=== PATIENT | male | born 1960 | race Caucasian/White ===

== ENCOUNTER 2016-08-02 02:08 | Inpatient (IN) | payer OTHER ==
[~2016-08-02] VITALS: Ht 177.8 cm; Wt 99.8 kg
--- NOTE | ~2016-08-02 | PR ---
[place], [place] PROGRESS NOTE NAME: TAVIA WERNER JR [facility] #: [id number] UNIT #: [id number] ROOM: 528 DOCTOR: VARGHESE BOND MD,ARGELIA BIRTHDATE: [birth year] DOS: 08/07/2016 PULMONARY FOLLOWUP SUBJECTIVE: He has been noted comfortable, was noted with some rash of the skin. The patient has been still noted with some chest congestion and cough, but not severe. OBJECTIVE: VITAL SIGNS: Normal temperature, respiratory rate 20, heart rate 70, blood pressure 120/72. The pulse oxygen saturation for the patient was noted on room air 93% saturation. HEENT: Examination shows no acute change. NECK: Supple. CARDIOVASCULAR: S1, S2 is audible. LUNGS: Noted without any wheeze or crackles. ABDOMEN: Soft, nontender. IMPRESSION: Resolving acute exacerbation of bronchial asthma with acute bronchitis. Skin rash of the patient which were noted mild, unclear etiology, most likely drug related. PLAN OF TREATMENT: No change in plan of management. Continue the patient on current therapy as in progress without any changes with all other care. Usual medical management. Supportive care. ARGELIA KWONG MD CM:PNTRANS [id number] ARGELIA BOND MD 08/07/16 1510 interface
--- NOTE | ~2016-08-02 | CON ---
[place], [place] REPORT OF CONSULTATION NAME: TAVIA WERNER JR [facility] #: [id number] UNIT #: [id number] ROOM: 528 DOCTOR: ARGELIA ALCOCER MD BIRTHDATE: [birth year] DOS: 08/04/2016 PULMONARY CONSULTATION EVALUATION AND MANAGEMENT REASON FOR CONSULTATION: Assess the patient for persistent cough, wheezing and shortness of breath. HISTORY OF PRESENT ILLNESS: This is a 55-year-old white male who has been known to me from a previous admission of 10/17/2015. The patient has been treated at that time in this hospital for the management of acute exacerbation of bronchial asthma with acute bronchitis. The patient did very well and started with having increased respiratory symptoms, which has been started for this patient for the last few days. The symptoms have been noted shortness of breath, which was noted progressively worsened. The symptoms started after the patient started with having what is called chest cold. The cough has been noted for the patient, which progressively got worse and described to be nonproductive, mostly dry. Denies symptoms of hemoptysis. The patient has had some wheezing at times. He denies symptoms of chest pain. Chest tightness rather was described. REVIEW OF SYSTEMS: CONSTITUTIONAL: The patient was noted with some symptoms of fatigue and tiredness, but there were no symptoms of fever or chills. EYES: Denies any burning, redness, or tenderness. EARS, NOSE, THROAT: No sore throat, hoarseness, or otalgia. Postnasal drainage. CARDIOVASCULAR: Denies anginal pain, edema or pain of the lower extremities. GASTROINTESTINAL: Denies nausea, vomiting, diarrhea, abdominal pain, hematemesis, melena, or hematochezia. GENITOURINARY: Denies dysuria, suprapubic pain, hematuria. SKIN: No lesions or rashes. CENTRAL NERVOUS SYSTEM: Denies dizziness, headache or diplopia. Remaining systems for the patient were reviewed, they were noted all negative. The patient's past medical history is noted for medically managed bronchitis and also described as pulmonary embolism with a CT scan of the chest that was done on 06/25/2016. The patient has been adequately treated at that time. PAST MEDICAL HISTORY: Noted with, 1. Uncomplicated moderate persistent bronchial asthma. 2. Asymptomatic cholelithiasis. 3. Type 2 diabetes mellitus. 4. Essential hypertension. 5. Nonalcoholic fatty liver. 6. Chronic lower back pain. 7. Osteoarthritis and osteoporosis. 8. Seasonal allergic rhinitis. 9. Right lower lobe pulmonary embolism, which was diagnosed for the patient in 05/2016. [place], [place] REPORT OF CONSULTATION NAME: TAVIA WERNER JR UNIT #: [id number] ROOM: 528 DOCTOR: ARGELIA ALCOCER MD BIRTHDATE: [birth year] PAST SURGICAL HISTORY: 1. Low back surgery. 2. Appendectomy. 3. Carpal tunnel release. SOCIAL HISTORY: The patient is , has 2 children. Denies any alcohol or illicit drug use. Tobacco use was noted in the past, unknown duration of the tobacco use. At this time, the patient does not smoke any cigarettes. FAMILY HISTORY: Not known. MEDICATIONS: Current administered medications for the patient were noted as the use of Flexeril, sliding scale insulin coverage, Mucinex, IV Solu-Medrol, Xarelto, Xopenex via nebulizer, doxycycline, Rocephin, Xanax, and other p.r.n. medications. ALLERGIES: Drug allergy has been described as allergy to, 1. CAFFEINE. 2. ALBUTEROL SULFATE. 3. SUDAFED. 4. ADVAIR. Drug allergies were described as tightness in the chest. PHYSICAL EXAMINATION: GENERAL: This is a 55-year-old white male without any distress. Height of 5 feet 10 inches, weight of 220 pounds, BMI 31.3. VITAL SIGNS: Shows normal temperature, respiratory rate of the patient recorded as 20, heart rate of 85, blood pressure 130/70. Intake for the patient was recorded as 3000 mL, output was 4050 mL. Pulse oxygen saturation on room air was 93% saturation. HEENT: Mild obesity. Head was atraumatic. Eyes nonicterus. Oral mucosa moist, no abnormal lesions. CARDIOVASCULAR: S1, S2 is audible. LUNGS: Noted moderately reduced breath sounds in the lungs bilaterally without any wheeze or crackles. Breaths are noted essentially generalized diminished bilaterally. ABDOMEN: Soft, nontender. LABORATORY DATA: CBC on 07/02/2016 on admission was noted as normal. Lactic acid on 07/02/2016 was normal. PT/PTT on 07/02/2016 was normal. CMP of the patient 07/02/2016, glucose 136, BUN and creatinine was normal. Repeat troponins and CK-MB for this patient, which were done were noted as normal. The CBC that was done yesterday, still noted as normal. PT/PTT repeated again yesterday was normal. CMP of the patient on 08/03/2016, glucose 265, BUN and creatinine were normal. Chest x-ray on admission for this patient was noted without any acute pulmonary infiltration or other abnormalities. The patient had a CTA of the chest repeated on 08/02/2016, shows resolution of previously noted right lobe pulmonary embolism. There were no abnormal infiltration nodules, lymphadenopathy or other pulmonary disease was noted. Fatty liver was [place], [place] REPORT OF CONSULTATION NAME: TAVIA WERNER JR UNIT #: [id number] ROOM: 528 DOCTOR: ARGELIA ALCOCER MD BIRTHDATE: [birth year] described by the radiologist. IMPRESSION: The patient who has been currently admitted to the hospital with recurrence of acute exacerbation of bronchial asthma noted with moderate severe nonproductive cough with shortness of breath with exertion and wheezing intermittently. PLAN OF TREATMENT: The patient has been asked for bronchoscopy to be done per primary care attending because of nonresolution of symptoms and the bronchoscopy was planned to be done this morning. He has already been made n.p.o. for the bronchoscopy. Any further change in treatment if necessary will be ordered after bronchoscopy. Continue other treatment, plan and management and usual care. Supportive therapy, plan of management. Usual care. All other treatment plan of management and care. Any medical management changes needed will be done after bronchoscopy. Temporary hold of anticoagulation until the completion of bronchoscopy and then it could be resumed again. ARGELIA KWONG MD CM:CONSTR:REPORT OF CONSULTATION 1456 08/05/16 0049 interface
--- NOTE | ~2016-08-02 | PR ---
[place], [place] PROGRESS NOTE NAME: TAVIA WERNER JR UNIT #: [id number] ROOM: 528 DOCTOR: ARGELIA ALCOCER MD BIRTHDATE: [birth year] DOS: 08/05/2016 PULMONARY PROGRESS NOTE SUBJECTIVE: The patient was seen and examined on 08/05/2016. He has been noted significant reduction and improvement in respiratory symptoms, cough, shortness of breath and wheezing after bronchoscopy that was done yesterday. He has been comfortably resting at this time. Stated that he has been noted some shortness of breath yesterday, which has been treated with Xanax and the patient felt better after that. OBJECTIVE: VITAL SIGNS: The patient has normal temperature, respirations 18, heart rate of 87, blood pressure 100/60. Pulse oxygen saturation of the patient was noted on room air 93% saturation. HEENT: No acute change. NECK: Supple. CARDIOVASCULAR: S1, S2 audible. LUNGS: Noted without any wheezing or crackles. Breath sounds noted moderately decreased bilaterally. ABDOMEN: Soft, nontender. LABORATORY DATA: Gram stain of bronchial washing, moderate white blood cells, rare epithelial cells, few gram-positive cocci in pairs and clusters. Preliminary culture shows normal viky. IMPRESSION: 1. The patient with improvement has been noted with acute respiratory symptoms of shortness of breath, cough and wheezing after bronchoscopy. Sputum culture noted negative. 2. Underlying psychiatric illness as well. PLAN OF TREATMENT: No changes in the plan of management, except reduction of corticosteroids have been ordered if necessary. The patient would be discharged home on oral antibiotics, bronchodilators, prescription for inhaled corticosteroids and short acting bronchodilators has been written for this patient to be given to the patient postdischarge. He was advised to be followed after 3 weeks postdischarge. [place], [place] PROGRESS NOTE NAME: TAVIA WERNER JR UNIT #: [id number] ROOM: 528 DOCTOR: ARGELIA ALCOCER MD BIRTHDATE: [birth year] ARGELIA KWONG MD CM:PNTRANS [phone] ARGELIA BOND MD 09/13/16 1432 interface
--- NOTE | ~2016-08-02 | PR ---
[place], [place] PROGRESS NOTE NAME: TAVIA WERNER JR [facility] #: [id number] UNIT #: [id number] ROOM: 528 DOCTOR: MAGO WARE MD BIRTHDATE: [birth year] DOS: 08/06/2016 SUBJECTIVE: The patient who has been admitted to the hospital with shortness of breath, chest pain and panic syndrome. He gets palpitation and has been admitted to the hospital repeatedly with these problems. The patient was put on Rocephin, developed rashes on his body, so Rocephin has been stopped and start on Benadryl. He is feeling better. His CBC is normal. PHYSICAL EXAMINATION: VITAL SIGNS: Blood pressure 120/77, pulse 88, respirations 18, temperature 97.6. The patient is feeling better and improving. Thank you very much. MAGO WARE MD CM:PNTRANS [id number] MAGO WARE MD 09/13/16 1431 interface
--- NOTE | ~2016-08-02 | PR ---
[place], [place] PROGRESS NOTE NAME: TAVIA WERNER JR [facility] #: [id number] UNIT #: [id number] ROOM: 528 DOCTOR: VARGHESE BOND MD,ARGELIA BIRTHDATE: [birth year] DOS: 08/08/2016 PULMONARY PROGRESS NOTE SUBJECTIVE: He has been noting improvement in the chest congestion and overall symptoms. Cough has been improving. Denies any shortness of breath or wheezing at this time. OBJECTIVE: VITAL SIGNS: For the patient, which has been recorded showed the temperature of the patient recorded as normal, respiratory rate of 20, heart rate of 70, blood pressure 100/54. The pulse oxygen saturation on room air 92% saturation. HEENT: Examination shows no acute change. NECK: Supple. CARDIOVASCULAR: S1, S2 audible. LUNGS: Clear. ABDOMEN: Soft, nontender. IMPRESSION: Progressive resolution of the acute exacerbation of bronchial asthma and bronchitis. PLAN OF TREATMENT: Discharge whenever is necessary on oral medication as well as inhaled corticosteroids, short-acting bronchodilators, and tapering prednisone. ARGELIA KWONG MD CM:PNTRANS [phone] ARGELIA BOND MD 08/09/16 0033 interface
--- NOTE | ~2016-08-02 | EKG ---
[place], [place] ELECTROCARDIOGRAM REPORT NAME: TAVIA WERNER JR UNIT #: [id number] ROOM: 528 DOCTOR: VICKI STAFFORD MD BIRTHDATE: [birth year] DOS: 08/02/2016 TIME: 02:30:59. RATE AND RHYTHM: Normal sinus rhythm at 92 beats per minute, WV interval 132 milliseconds, QRS duration 90 milliseconds, corrected QT interval 422 milliseconds, QRS axis is -10. IMPRESSION: 1. Normal sinus rhythm. 2. Multiple ventricular premature complexes. 3. This is abnormal EKG. VICKI STAFFORD MD CM:EKGRPT:ELECTROCARDIOGRAM REPORT 1152 1212 VICKI STAFFORD MD
--- NOTE | ~2016-08-02 | PROC NOTE ---
[place], [place] PROCEDURE NOTE NAME: TAVIA WERNER JR [facility] #: [id number] UNIT #: [id number] ROOM: 528 DOCTOR: VARGHESE BOND MD,ARGELIA BIRTHDATE: [birth year] DOS: 08/04/2016 PROCEDURE: Bronchoscopy. PREOPERATIVE DIAGNOSES: The patient with persistent symptoms of nonproductive cough and ineffective secretions clearance and was wheezing intermittently with shortness of breath and ongoing bronchial asthma exacerbation. POSTOPERATIVE DIAGNOSES: Removal of moderate impaction of the mucus in the patient's endobronchial tube bilaterally with findings of mild acute tracheobronchitis. PROCEDURE DESCRIPTION: Informed consent obtained from the patient. The patient was placed in a supine position. Conscious sedation administered by the Anesthesia Department. After achieving appropriate sedation, airway introduced into the mouth. Bronchoscope advanced into the airway into laryngeal area. Epiglottis and vocal cords were seen. The vocal cords for this patient noted moving symmetrically with the movements. Bronchoscope advanced through the vocal cord and tracheal lumen. Tracheal lumen shows small amount of mucoid secretions suctioned out of the rhonda level. The secretions were cleared off from the tracheal lumen. Rhonda noted sharp. Right upper, right middle, right lower, left upper, lingular lower lobe bronchial opening were all noted with a [id number] impaction of the thick mucoid plugs for the patient, which were cleared with normal saline wash, sent for cultures. Procedure well tolerated by the patient without any complications. Postoperative findings will be discussed with the patient once the patient recovered the effects of acute sedation. No major family members were available to discuss the current findings. ARGELIA KWONG MD CM:PROCNOTE:PROCEDURE NOTE [id number] ARGELIA BOND MD
--- NOTE | ~2016-08-02 | PR ---
[place], [place] PROGRESS NOTE NAME: TAVIA WERNER JR [facility] #: [id number] UNIT #: [id number] ROOM: 528 DOCTOR: VARGHESE BOND MD,ARGELIA BIRTHDATE: [birth year] DOS: 08/06/2016 He was seen and examined on 08/06/2016. He has been noted with continued reduction and improvement and resolution of acute symptoms. At this time, there are no symptoms of chest pain, abdominal pain. PHYSICAL EXAMINATION: VITAL SIGNS: Normal temperature, respiratory rate 18, heart rate 85, blood pressure 120/77. The pulse oxygen saturation on room air 95% saturation recorded. HEENT: Examination shows no acute change. NECK: Supple. CARDIOVASCULAR: S1, S2 is audible. LUNGS: Noted without any wheezing or crackles. ABDOMEN: Soft, nontender. IMPRESSION: The patient with progressive resolution of the acute exacerbation of bronchial asthma, acute tracheobronchitis, status post bronchoscopy. PLAN OF TREATMENT: No new medications to be administered. The patient could be discharged from the pulmonary standpoint on oral medications as well as the bronchodilators ____ corticosteroids. Outpatient followup suggested post-discharge. ARGELIA KWONG MD CM:LORA [phone] ARGELIA BOND MD 09/13/16 1428 interface
--- NOTE | ~2016-08-02 | CON ---
[place], [place] REPORT OF CONSULTATION NAME: TAVIA WERNER JR [facility] #: [id number] UNIT #: [id number] ROOM: 528 DOCTOR: LANI JUDGE ED.D) BIRTHDATE: [birth year] DOS: 08/03/2016 HISTORY OF PRESENT ILLNESS: The patient is a 55-year-old male referred by Dr. Edward for psychological evaluation. At the present time, he is on the 5th floor at [facility]. The patient is and he has two children. He does have one brother and one half brother. His parents are both . This patient's medical history is pertinent for history of pulmonary embolism, major depressive disorder, recurrent, diabetes mellitus type 2, generalized anxiety disorder, osteoarthritis, hyperglycemia and chronic back pain. His medications include Zyrtec, Flonase, Asmanex, Xarelto and Xanax. He is allergic to albuterol, Advair and pseudoephedrine. He has also taken multiple antidepressants over the years with little relief of his symptoms. He denies any substance abuse issues at this time. This patient was awake, alert and oriented in all 3 spheres, but appeared to be extremely depressed and tearful. He denied any suicidal ideation and because he believes that it would be a sin to harm himself. He did follow up in my office several years ago, but did not continue to follow up with outpatient treatment. He is also followed with numerous psychiatrists in the past with full relief of his symptoms. I do believe he would benefit from antidepressant medication, but I am not certain which ones he has been on in the past, which have failed. DIAGNOSIS: Major depressive disorder, recurrent. RECOMMENDATIONS: 1. The patient would most likely benefit from an antidepressant. 2. The patient should follow up outpatient for psychotherapy and he did agree to do so. I gave him a list of several providers in the area. Thank you very much for this consult. LANI JUDGE ED.D CM:CONSTR:REPORT OF CONSULTATION 1507 08/04/16 0135 interface
[~2016-08-02 02:08] MED LIST: ALPRAZOLAM0.5 M3 PO; AMOXICILLI200 MG/51 PO; AMOXICILLIN500 M2 PO; ASMANEX220 MC1 INH; ASMANEX220 MC2 INH; ATENOLOL25 MG PO; BRIN10TA PO; CLARITIN10 MG PO; D3-5050000 IU PO; DOCUSATE SODIU100 M2 PO; DOXYCYCLINE HY100 M5 PO; Duragesic 25 M25 MCG TD; ELAVIL; FLONASE0.05 MG/AC NS; HYDROCODONE BIT1 T11 PO; HYDROCORTISONE30 G2 T; LEVAQUIN750 M1 PO; LEVORPHANOL TART2 MG PO; METHADONE10 MG PO; MOTRIN800 MG PO; NASAL SALINE 4545 ML NAS; NEURONTIN600 MG PO; NORCO 325 MG-51 TAB PO; PERCOCET 325 MG1 TA2 PO; PRAVACHOL20 MG PO; PREDNISONE50 MG PO; PRILOSEC20 MG PO; PROPRANOLOL10 MG PO; PROZAC20 MG PO; QVAR0.08 MG/AC INH; SERTRALINE100 MG PO; SINGULAIR10 M1 PO; SPIRIVA RESPIMAT4 G1 PO; TRAZODONE HYDR100 MG PO; XARELTO15 M1 PO; XARELTO20 M1 PO; ZYRTEC10 M1 PO; [UNRECOGNIZED DRUG - REMARK]
[2016-08-02 02:20] VITALS: BP 121/66
[2016-08-02 02:46] LABS: BASO % 0.3 % (0.0-1.0); EOS % 0.2 % (1.0-4.0); HEMATOCRIT 44.1 % (42.0-52.0); HEMOGLOBIN 14.9 g/dl (14.0-18.0); IG # 0.1 10*3/uL (0.0-0.1); LYMPH # 0.8 10*3/uL (1.3-4.4); MEAN CELL VOLUME 87.7 fl (80.0-94.0); MEAN CORPUSCULAR HGB 29.6 pg (27.0-31.0); MEAN CORPUSCULAR HGB CONC 33.8 g/dl (33.0-37.0); MEAN PLATELET VOLUME 9.5 fl (9.6-12.3); MONO # 0.6 10*3/uL (0.1-1.0); MONO % 10.2 % (3.0-9.0); NEUT # 4.7 10*3/uL (2.3-7.9); NEUT % 75.5 % (47.0-73.0); PLATELET COUNT AUTOMATED 175 10*3/uL (130-400); RED BLOOD COUNT 5.03 10*6/uL (4.50-5.90); WHITE BLOOD COUNT 6.2 10*3/uL (4.8-10.8)
[2016-08-02 02:56] LABS: PROTHROMBIN TIME 10.7 SECONDS (9.0-12.4)
[2016-08-02 03:04] LABS: ALBUMIN 3.4 gm/dl (3.1-4.5); ALKALINE PHOSPHATASE 87 U/L (45-117); BILIRUBIN, TOTAL 0.8 mg/dl (0.2-1.0); BUN 12 mg/dl (7-24); C-REACTIVE PROTEIN 2.75 MG/DL (0-0.3); CARBON DIOXIDE 28 mmol/L (21-32); CHLORIDE 101 mmol/L (98-107); CKMB < 0.5 ng/ml (0.5-3.6); CPK 50 U/L (39-308); EST GLOM FILT AFRICAN AMERICAN > 60 ml/min; GLUCOSE 136 mg/dL (65-99); MAGNESIUM 1.8 mg/dL (1.5-2.1); SGOT/AST 55 IU/L (3-35); SGPT/ALT 60 U/L (12-78); SODIUM 138 mmol/L (136-145); TOTAL PROTEIN 7.1 gm/dL (6.4-8.2)
[2016-08-02 05:24] VITALS: BP 115/76
[2016-08-02 08:00] VITALS: BP 115/54
[2016-08-02 12:00] VITALS: BP 112/56
[2016-08-02 14:02] LABS: CKMB < 0.5 ng/ml (0.5-3.6); CPK 63 U/L (39-308)
[2016-08-02 16:00] VITALS: BP 130/54
[2016-08-02 18:31] LABS: CPK 59 U/L (39-308)
[2016-08-02 18:33] LABS: CKMB < 0.5 ng/ml (0.5-3.6)
[2016-08-02 20:00] VITALS: BP 127/68
[2016-08-03] VITALS: BP 101/50
[2016-08-03 00:53] LABS: CKMB 0.6 ng/ml (0.5-3.6)
[2016-08-03 06:22] LABS: HEMATOCRIT 41.3 % (42.0-52.0); HEMOGLOBIN 14.2 g/dl (14.0-18.0); IG # 0.1 10*3/uL (0.0-0.1); LYMPH # 0.9 10*3/uL (1.3-4.4); LYMPH % 13.7 % (27.0-41.0); MEAN CELL VOLUME 86.9 fl (80.0-94.0); MEAN CORPUSCULAR HGB 29.9 pg (27.0-31.0); MEAN CORPUSCULAR HGB CONC 34.4 g/dl (33.0-37.0); MEAN PLATELET VOLUME 9.5 fl (9.6-12.3); MONO # 0.3 10*3/uL (0.1-1.0); MONO % 4.1 % (3.0-9.0); NEUT # 5.6 10*3/uL (2.3-7.9); NEUT % 81.3 % (47.0-73.0); PLATELET COUNT AUTOMATED 158 10*3/uL (130-400); RED BLOOD COUNT 4.75 10*6/uL (4.50-5.90); RED CELL DISTRI WIDTH 11.9 % (0-14.5); WHITE BLOOD COUNT 6.9 10*3/uL (4.8-10.8)
[2016-08-03 06:48] LABS: HEMOGLOBIN A1c 6.1 % (4.8-5.6)
[2016-08-03 07:03] LABS: INTERNATIONAL NORM RATIO 1.1 (2.0-3.5); PROTHROMBIN TIME 11.9 SECONDS (9.0-12.4)
[2016-08-03 07:05] LABS: ALKALINE PHOSPHATASE 64 U/L (45-117); BILIRUBIN, TOTAL 0.4 mg/dl (0.2-1.0); BUN 14 mg/dl (7-24); CARBON DIOXIDE 22 mmol/L (21-32); CHLORIDE 104 mmol/L (98-107); EST GLOM FILT AFRICAN AMERICAN > 60 ml/min; GLUCOSE 265 mg/dL (65-99); POTASSIUM 3.5 mmol/L (3.5-5.1); SGOT/AST 25 IU/L (3-35); SGPT/ALT 51 U/L (12-78); SODIUM 141 mmol/L (136-145); TOTAL PROTEIN 6.4 gm/dL (6.4-8.2)
[2016-08-03 07:14] LABS: FREE T4 1.16 ng/dl (0.76-1.46); MAGNESIUM 2.3 mg/dL (1.5-2.1); THYROID STIM HORMONE (HS) 0.559 uIU/ml (0.358-4.75)
[2016-08-03 08:00] VITALS: BP 118/56
[2016-08-03 10:01] LABS: BILIRUBIN NEGATIVE (NEGATIVE); BLOOD NEGATIVE (NEGATIVE); CLARITY CLEAR (CLEAR); COLOR YELLOW (YELLOW); GLUCOSE 2+ (NEGATIVE); KETONE NEGATIVE (NEGATIVE); LEUKO ESTERASE NEGATIVE (NEGATIVE); NITRITE NEGATIVE (NEGATIVE); PROTEIN NEGATIVE (NEGATIVE); SPECIFIC GRAVITY 1.015 (1.005-1.030); UROBILINOGEN 0.2 E.U./dl (0.2-1.0)
[2016-08-03 10:35] LABS: EPITHELIAL CELLS 0-2; RBC 0-2 rbc/hpf (0-2); URINE REFLEX COMMENT NO (NO)
[2016-08-03 12:00] VITALS: BP 114/52
[2016-08-03 13:09] LABS: VITAMIN D, 25-HYDROXY 27.1 ng/mL (30-100)
[2016-08-03 13:10] LABS: FOLIC ACID 11.04 ng/mL (>5.38)
[2016-08-03 16:00] VITALS: BP 119/53
[2016-08-03 20:00] VITALS: BP 124/63
[2016-08-04] VITALS (12 sets, daily range): BP systolic 100–146; BP diastolic 50–81
[2016-08-05] VITALS: BP 102/52
[2016-08-05 08:00] VITALS: BP 100/60
[2016-08-05] MEDS ORDERED: QVAR0.08 MG/AC INH (09:18)
[2016-08-05] MEDS ORDERED: VENTOLIN H0.09 MG/AC INH (09:18)
[2016-08-05 16:00] VITALS: BP 99/53
[2016-08-05 17:06] LABS: ACID FAST SPEC PROCESSING Concentration (.)
[2016-08-05 20:00] VITALS: BP 110/55
[2016-08-06] VITALS: BP 107/62
[2016-08-06 06:43] LABS: HEMATOCRIT 43.5 % (42.0-52.0); HEMOGLOBIN 14.6 g/dl (14.0-18.0); MEAN CORPUSCULAR HGB 29.2 pg (27.0-31.0); MEAN CORPUSCULAR HGB CONC 33.6 g/dl (33.0-37.0); MEAN PLATELET VOLUME 9.7 fl (9.6-12.3); PLATELET COUNT AUTOMATED 161 10*3/uL (130-400); RED CELL DISTRI WIDTH 11.9 % (0-14.5)
[2016-08-06 06:45] LABS: BUN 16 mg/dl (7-24); CARBON DIOXIDE 25 mmol/L (21-32); CHLORIDE 104 mmol/L (98-107); EST GLOM FILT AFRICAN AMERICAN > 60 ml/min; GLUCOSE 132 mg/dL (65-99); POTASSIUM 3.6 mmol/L (3.5-5.1); SODIUM 142 mmol/L (136-145)
[2016-08-06 07:35] LABS: ATYPICAL LYMPHS 8 % (0-0); LYMPHOCYTE # 2.5 10*3/uL (1.3-4.4); MONOCYTE # 0.4 10*3/uL (0.1-1.0); NEUTROPHIL # 3.1 10*3/uL (2.3-7.9); NEUTROPHILS 51 % (47-73); PLATELET SUFFICIENCY NORMAL (NORMAL); TOTAL CELLS COUNTED 100 #CELLS
[2016-08-06 08:10] VITALS: BP 113/77
[2016-08-06 12:08] VITALS: BP 120/77
[2016-08-06 16:00] VITALS: BP 96/51
[2016-08-06 20:00] VITALS: BP 96/51
[2016-08-07] VITALS: BP 105/59
[2016-08-07 08:00] VITALS: BP 120/72
[2016-08-07 12:00] VITALS: BP 119/70
[2016-08-07 16:00] VITALS: BP 98/57
[2016-08-07 20:00] VITALS: BP 98/70
[2016-08-08] VITALS: BP 118/55
[2016-08-08 08:00] VITALS: BP 100/54
[2016-08-08 12:00] VITALS: BP 116/76
[2016-08-08] MEDS ORDERED: DOXYCYCLINE100 M3 PO (14:40)
[2016-08-08] MEDS ORDERED: CYCLOBENZAPRINE10 MG PO (14:40)
[2016-08-08] MEDS ORDERED: MUCINEX ER600 MG PO (14:40)
[2016-08-08] MEDS ORDERED: LEVALBUTER1.25 MG/4 NEB (15:18)
[2016-08-30 13:07] LABS: M AVIUM COMPLEX Positive (.); M TUBERCULOSIS COMPLEX Negative (.)
== END 2016-08-08 15:55 | disposition home or self-care (01) | DRG 202 ==
LOC: ED 02:08 → EDHOLD 04:57 → 5E 04:57
PROVIDERS: Emergency Medicine; Hospitalist; Internal Medicine Critical Care Medicine
PROC: 0BC98ZZ Extirpation of Matter from Lingula Bronchus, Via Natural or Artificial Opening Endoscopic (ICD-10-PCS; principal; 2016-08-04)
PROC: 0BC18ZZ Extirpation of Matter from Trachea, Via Natural or Artificial Opening Endoscopic (ICD-10-PCS; 2016-08-04)
PROC: 0BC58ZZ Extirpation of Matter from Right Middle Lobe Bronchus, Via Natural or Artificial Opening Endoscopic (ICD-10-PCS; 2016-08-04)
PROC: 0BC38ZZ Extirpation of Matter from Right Main Bronchus, Via Natural or Artificial Opening Endoscopic (ICD-10-PCS; 2016-08-04)
PROC: 0BC88ZZ Extirpation of Matter from Left Upper Lobe Bronchus, Via Natural or Artificial Opening Endoscopic (ICD-10-PCS; 2016-08-04)
PROC: 0BC48ZZ Extirpation of Matter from Right Upper Lobe Bronchus, Via Natural or Artificial Opening Endoscopic (ICD-10-PCS; 2016-08-04)
PROC: 0BC68ZZ Extirpation of Matter from Right Lower Lobe Bronchus, Via Natural or Artificial Opening Endoscopic (ICD-10-PCS; 2016-08-04)
PROC: 0BCB8ZZ Extirpation of Matter from Left Lower Lobe Bronchus, Via Natural or Artificial Opening Endoscopic (ICD-10-PCS; 2016-08-04)
PROC: 0BC78ZZ Extirpation of Matter from Left Main Bronchus, Via Natural or Artificial Opening Endoscopic (ICD-10-PCS; 2016-08-04)
DX: J45.901 Unspecified asthma with (acute) exacerbation (principal); J18.9 Pneumonia, unspecified organism; T17.590A Other foreign object in bronchus causing asphyxiation, initial encounter; E44.1 Mild protein-calorie malnutrition; F33.1 Major depressive disorder, recurrent, moderate; E11.69 Type 2 diabetes mellitus with other specified complication; E11.65 Type 2 diabetes mellitus with hyperglycemia; K76.0 Fatty (change of) liver, not elsewhere classified; M15.0 Primary generalized (osteo)arthritis; E78.5 Hyperlipidemia, unspecified; J20.9 Acute bronchitis, unspecified; M81.0 Age-related osteoporosis without current pathological fracture; G89.29 Other chronic pain; M54.5 Low back pain; I10 Essential (primary) hypertension; F41.1 Generalized anxiety disorder; Z79.899 Other long term (current) drug therapy; Z88.8 Allergy status to other drugs, medicaments and biological substances; Z91.011 Allergy to milk products; Z98.890 Other specified postprocedural states; Z82.49 Family history of ischemic heart disease and other diseases of the circulatory system; Z84.89 Family history of other specified conditions; Z79.4 Long term (current) use of insulin; Z87.19 Personal history of other diseases of the digestive system; Z86.711 Personal history of pulmonary embolism; Z79.01 Long term (current) use of anticoagulants

== ENCOUNTER → 2017-06-19 | Outpatient (CLI) | payer OTHER ==
[~2017-06-19] MED LIST changes: +CYCLOBENZAPRINE10 MG PO; +DOXYCYCLINE100 M3 PO; +LEVALBUTER1.25 MG/4 NEB; +MUCINEX ER600 MG PO; +VENTOLIN H0.09 MG/AC INH
== END | disposition home or self-care (01) ==
LOC: RAD 10:02
DX: M51.36 Other intervertebral disc degeneration, lumbar region (principal); M48.061 Spinal stenosis, lumbar region without neurogenic claudication; Z98.1 Arthrodesis status

== ENCOUNTER → 2017-07-10 | Outpatient (CLI) | payer OTHER | LOC: US 09:49 | DX: K76.0 Fatty (change of) liver, not elsewhere classified (principal); R74.8 Abnormal levels of other serum enzymes ==

== ENCOUNTER 2020-05-06 10:43 | Emergency (ER) | payer OTHER ==
[~2020-05-06] VITALS: Ht 177.8 cm; Wt 102.1 kg
[2020-05-06] MEDS ORDERED: AMOXICILLIN500 M2 PO (11:14)
== END 2020-05-06 11:34 | disposition home or self-care (01) ==
LOC: ED 10:43
DX: H66.92 Otitis media, unspecified, left ear (principal); Z88.8 Allergy status to other drugs, medicaments and biological substances; Z79.899 Other long term (current) drug therapy

== ENCOUNTER → 2020-08-18 | Outpatient (CLI) | payer OTHER | END | disposition home or self-care (01) | LOC: CARD 14:58 | PROVIDERS: ATTEND Family Medicine | DX: I51.7 Cardiomegaly (principal); I31.3 Pericardial effusion (noninflammatory); I49.9 Cardiac arrhythmia, unspecified; I48.92 Unspecified atrial flutter ==

== ENCOUNTER 2021-01-12 10:35 | Emergency (ER) | payer OTHER ==
[~2021-01-12] VITALS: Wt 102.1 kg
[2021-01-12] MEDS ORDERED: CEFDINIR300 MG PO (11:22)
== END 2021-01-12 11:36 | disposition home or self-care (01) ==
LOC: ED 10:35
DX: H66.92 Otitis media, unspecified, left ear (principal); Z88.8 Allergy status to other drugs, medicaments and biological substances; Z88.5 Allergy status to narcotic agent; Z79.2 Long term (current) use of antibiotics; Z79.899 Other long term (current) drug therapy; Z98.890 Other specified postprocedural states; Z90.49 Acquired absence of other specified parts of digestive tract; Z87.891 Personal history of nicotine dependence

== ENCOUNTER → 2022-06-02 | Day surgery (SDC) | payer OTHER ==
[~2022-06-02] VITALS: Ht 175.2 cm; Wt 85.3 kg
[~2022-06-02] MED LIST changes: +ALOGLIPTIN25 MG PO; +CEFDINIR300 MG PO; +DOXEPIN HCL10 MG PO; +ELIQUIS5 M1 PO; +HYDROCODONE-AC1 EAC1 PO; +SPIRIVA 5 CAPS18 MCG INH; +SUBOXONE 2 MG-1 EACH SL
[2022-06-02 09:08] VITALS: BP 124/72
[2022-06-02 10:38] VITALS: BP 105/83
[2022-06-02 10:53] VITALS: BP 115/62
[2022-06-02 11:03] VITALS: BP 115/62
== END | disposition home or self-care (01) ==
LOC: SDC 05-30 11:00
PROVIDERS: ATTEND Surgery
DX: D17.21 Benign lipomatous neoplasm of skin and subcutaneous tissue of right arm (principal); D17.22 Benign lipomatous neoplasm of skin and subcutaneous tissue of left arm; F41.9 Anxiety disorder, unspecified; F32.A Depression, unspecified; J45.909 Unspecified asthma, uncomplicated; M19.90 Unspecified osteoarthritis, unspecified site; E11.9 Type 2 diabetes mellitus without complications; E78.00 Pure hypercholesterolemia, unspecified; M81.0 Age-related osteoporosis without current pathological fracture; Z79.899 Other long term (current) drug therapy

== ENCOUNTER → 2024-01-19 | Day surgery (SDC) | payer OTHER ==
[~2024-01-19] VITALS: Ht 177.8 cm; Wt 90.7 kg
[~2024-01-19] MED LIST changes: +ASMANEX HFA13 GM PO; +JARDIANCE25 MG PO; +LIPITOR40 MG PO; +Lopressor25 MG PO; +Midazolam Hydrochloride 2 MG/2 ML VIAL IV ONE; +PROPOFOL 200 MG/20 ML VIAL IV ONE; +SODIUM CHLORIDE 0.9% 1,000 ML IV ONE; +VIT D3 PO
[2024-01-19 10:37] VITALS: BP 125/90
[2024-01-19 11:25] VITALS: BP 93/55
[2024-01-19 11:40] VITALS: BP 101/63
[2024-01-19 11:55] VITALS: BP 99/68
== END | disposition home or self-care (01) ==
LOC: SDC 01-18 10:15
PROVIDERS: ATTEND Internal Medicine Cardiovascular Disease
DX: I48.92 Unspecified atrial flutter (principal); I49.3 Ventricular premature depolarization

== ENCOUNTER → 2024-02-20 | Outpatient (CLI) | payer OTHER ==
[~2024-02-20] MED LIST changes: -Midazolam Hydrochloride 2 MG/2 ML VIAL IV ONE; -PROPOFOL 200 MG/20 ML VIAL IV ONE; +Regadenoson 0.4 MG/5 ML SYR IV ONE; -SODIUM CHLORIDE 0.9% 1,000 ML IV ONE; +Technetium Tc 99M Tetrofosmi 0.23 MG KIT IJ SCH
== END | disposition home or self-care (01) ==
LOC: CARD 00:55
PROVIDERS: ATTEND Internal Medicine Cardiovascular Disease
DX: I48.91 Unspecified atrial fibrillation (principal); R06.09 Other forms of dyspnea